=== PATIENT | female | born 1995 | race Two or more races ===

== ENCOUNTER → 2023-10-16 | Outpatient (CLI) | payer OTHER | END | disposition home or self-care (01) | LOC: PRENATAL 13:14 | PROVIDERS: ATTEND Obstetrics & Gynecology Maternal & Fetal Medicine | DX: O35.9XX0 Maternal care for (suspected) fetal abnormality and damage, unspecified, not applicable or unspecified (principal); O35.3XX0 Maternal care for (suspected) damage to fetus from viral disease in mother, not applicable or unspecified; O44.02 Complete placenta previa NOS or without hemorrhage, second trimester; O36.0920 Maternal care for other rhesus isoimmunization, second trimester, not applicable or unspecified; Z3A.19 19 weeks gestation of pregnancy; Z14.8 Genetic carrier of other disease ==

== ENCOUNTER 2024-01-17 10:42 | Outpatient (CLI) | payer OTHER | END 2024-01-17 10:43 | disposition home or self-care (01) | LOC: PRENATAL 10:42 | PROVIDERS: ATTEND Obstetrics & Gynecology Maternal & Fetal Medicine | DX: O26.849 Uterine size-date discrepancy, unspecified trimester (principal); O36.8199 Decreased fetal movements, unspecified trimester, other fetus; O99.019 Anemia complicating pregnancy, unspecified trimester; O36.1999 Maternal care for other isoimmunization, unspecified trimester, other fetus; Z3A.34 34 weeks gestation of pregnancy ==

== ENCOUNTER 2024-02-21 14:00 | Outpatient (CLI) | payer OTHER ==
[2024-02-21 13:24] VITALS: BP 116/83
[2024-02-21] MEDS ORDERED: IRON240 MG PO (14:40)
[2024-02-21] MEDS ORDERED: PRENATAL TABLE1 EAC1 PO (14:40)
[2024-02-21] MEDS ORDERED: RINGERS SOLUTION,LACTATED 1,000 ML IV SCH (14:45)
[2024-02-21 15:30] VITALS: BP 117/80
[2024-02-21 16:46] VITALS: BP 117/80
== END 2024-02-21 16:46 | disposition home or self-care (01) ==
LOC: OBS/DEL 14:00
PROVIDERS: ATTEND Obstetrics & Gynecology
DX: O26.893 Other specified pregnancy related conditions, third trimester (principal); O47.1 False labor at or after 37 completed weeks of gestation; Z3A.37 37 weeks gestation of pregnancy

== ENCOUNTER 2024-02-24 05:57 | Inpatient (IN) | payer OTHER ==
[2024-02-24] VITALS (11 sets, daily range): BP systolic 97–135; BP diastolic 63–87
[~2024-02-24] VITALS: Ht 162.6 cm; Wt 76.2 kg
[~2024-02-24 05:57] MED LIST: IRON240 MG PO; PRENATAL TABLE1 EAC1 PO
[2024-02-24] MEDS ORDERED: RINGERS SOLUTION,LACTATED 1,000 ML IV SCH (06:15)
[2024-02-24 07:07] LABS: PH,URINE 5.5 (5.0-8.0); URINE APPEARANCE Clear; URINE BILIRRUBIN Negative (NEGATIVE); URINE BLOOD Negative; URINE COLOR Yellow; URINE GLUCOSE Negative (NEGATIVE); URINE KETONE Trace (NEGATIVE); URINE LEUKOCYTE Negative; URINE NITRATE Negative; URINE PROTEIN Trace (NEGATIVE); URINE UROBILINOGEN 0.2 E.U./dl
[2024-02-24 07:08] LABS: URINE BACTERIA 42.8 uL (0.0-1933); URINE EPITHELIAL CELLS 6.3 uL (0.0-38.8); URINE RBC 11.2 uL (0.0-20.8); URINE WBC 5.2 uL (0.0-23.2)
[2024-02-24 07:20] LABS: URINE CAST 0.15 uL (0.0-1.40)
[2024-02-24 07:23] LABS: HEMATOCRIT 36.5 % (36.0-45.00); HEMOGLOBIN 12.7 g/dL (12.0-15.00); MEAN CELL VOLUME 87.5 fL (80.00-100.00); MEAN CORPUSCULAR HEMOGLOBIN 30.4 pg (27.00-32.0); MEAN CORPUSCULAR HGB CONC 34.8 g/dl (32.0-36.0); PLATELET COUNT 156 K/uL (150-450); RED BLOOD COUNT 4.17 M/uL (4.00-6.00); RED CELL DISTRIBUTION WIDTH 15.6 % (11.5-14.5)
[2024-02-24 07:43] LABS: INR 0.94; PARTIAL THROMBOPLASTIN TIME 26.9 SECONDS (22.0-34.0); PROTHROMBIN TIME 10.3 SECONDS (9.0-11.5)
[2024-02-24 07:55] LABS: BILIRUBIN TOTAL 0.39 mg/dL (0.3-1.2); CALCIUM 9.1 mg/dL (8.5-10.1); CREATININE SERUM 0.77 mg/dL (0.55-1.02); GFR 88.63; GLOBULINA 3.6 G/DL (2.4-3.5); POTASSIUM 4.12 mEq/L (3.5-5.1); TOTAL PROTEIN 6.6 gm/dL (6.4-8.2)
[2024-02-24] MEDS ORDERED: OXYTOCIN 500 ML IV SCH (08:45)
[2024-02-24] MEDS ORDERED: PROMETHAZINE HCL 25 MG/ML AMPUL IV ONE (12:00)
[2024-02-24] MEDS ORDERED: MEPERIDINE HCL/PF 25 MG/ML VIAL IV ONE (12:00)
[2024-02-24] MEDS ORDERED: FF) RHO(D) IMMUNE GLOBULIN (POM) IM SCH (20:00)
[2024-02-24] MEDS ORDERED: IBUprofen 400 MG TABLET PO PRN (20:00)
[2024-02-24] MEDS ORDERED: CHLORHEXIDINE GLUCONATE 120 ML BOTTLE TOP SCH (20:00)
[2024-02-24] MEDS ORDERED: OXYTOCIN 1,000 ML IV SCH (20:00)
[2024-02-24] MEDS ORDERED: OxyCODONE HCL/APAP UD (PERCOCET) PO PRN (20:00)
[2024-02-24] MEDS ORDERED: LIDOCAINE HCL 1% 10ML VIAL PERCUT ONE (20:30)
[2024-02-24] MEDS ORDERED: MORPHINE SULFATE 4 MG/ML VIAL IV ONE (20:30)
[2024-02-25 00:09] VITALS: BP 100/60
[2024-02-25 05:48] VITALS: BP 103/67
[2024-02-25 08:00] VITALS: BP 98/67
[2024-02-25 08:14] LABS: HEMATOCRIT 28.1 % (36.0-45.00); MEAN CELL VOLUME 88.2 fL (80.00-100.00); PLATELET COUNT 166 K/uL (150-450); RED BLOOD COUNT 3.18 M/uL (4.00-6.00); RED CELL DISTRIBUTION WIDTH 15.6 % (11.5-14.5)
[2024-02-25 08:34] LABS: MEAN CORPUSCULAR HEMOGLOBIN 30.1 pg (27.00-32.0)
[2024-02-25 08:35] LABS: HEMOGLOBIN 9.6 g/dL (12.0-15.00)
[2024-02-25] MEDS ORDERED: PNV,CALCIUM 72/IRON/FOLIC ACID 1 TAB TABLET PO SCH (09:00)
[2024-02-25 14:51] VITALS: BP 101/70
[2024-02-25] MEDS ORDERED: FERROUS SULFATE 325 MG TABLET.EC PO SCH (17:00)
[2024-02-25 23:21] VITALS: BP 113/78
[2024-02-26 07:49] VITALS: BP 109/71
== END 2024-02-26 13:06 | disposition home or self-care (01) | DRG 807 ==
LOC: LDR 05:57 → OB/GYN 20:50
PROVIDERS: Obstetrics & Gynecology; ADMIT Student in an Organized Health Care Education/Training Program; ATTEND Student in an Organized Health Care Education/Training Program
PROC: 10E0XZZ Delivery of Products of Conception, External Approach (ICD-10-PCS; principal; 2024-02-24)
PROC: 0UQG7ZZ Repair Vagina, Via Natural or Artificial Opening (ICD-10-PCS; 2024-02-24)
PROC: 4A1HXCZ Monitoring of Products of Conception, Cardiac Rate, External Approach (ICD-10-PCS; 2024-02-24)
DX: O71.4 Obstetric high vaginal laceration alone (principal); Z37.0 Single live birth; Z3A.38 38 weeks gestation of pregnancy; Z20.822 Contact with and (suspected) exposure to COVID-19